=== PATIENT | female | born 1980 | race Caucasian/White ===

== ENCOUNTER 2019-01-16 18:09 | Emergency (ER) | payer MEDICAID ==
[~2019-01-16] VITALS: Ht 152.4 cm; Wt 53.2 kg
[~2019-01-16 18:09] MED LIST: HYDR-843 PO; IBUP-1542 PO; LORA-441 PO; PROP10TA6 PO
[2019-01-16 18:11] VITALS: Ht 152.4 cm; Wt 53.2 kg
[2019-01-16] MEDS ORDERED: LORAZEPAM 1 MG TAB PO ONE (21:00)
[2019-01-16 22:32] VITALS: BP 156/90; PULSE 82; RESP 19
== END 2019-01-16 22:33 | disposition home or self-care (01) ==
LOC: FTE 18:09
DX: F41.1 Generalized anxiety disorder (principal)
CPT/HCPCS: 71045; 81003; 81025; 93005; Z7502